=== PATIENT | female | born 1985 | race African-American/Black ===

== ENCOUNTER 2017-04-25 10:32 | Emergency (ER) | payer OTHER ==
[~2017-04-25] VITALS: Ht 170.2 cm; Wt 50.0 kg
[2017-04-25 10:33] VITALS: BP 112/72; PULSE 82; RESP 15; TEMP 98.2; O2SAT 98
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
[2017-04-25 10:51] VITALS: BP 107/61
== END 2017-04-25 11:23 | disposition home or self-care (01) ==
LOC: NEPD 10:32
DX: M54.5 Low back pain (principal); M25.551 Pain in right hip; M25.561 Pain in right knee; V89.2XXA Person injured in unspecified motor-vehicle accident, traffic, initial encounter
CPT/HCPCS: 99281